=== PATIENT | male | born 1950 | race Caucasian/White ===

== ENCOUNTER 2017-04-28 11:02 | Day surgery (SDC) | payer OTHER ==
[2017-04-28] MEDS ORDERED: fentaNYL 100 MCG/2 ML INJ IVP ONE (11:08)
[2017-04-28] MEDS ORDERED: NS 500 ML IV ONE (11:08)
[2017-04-28] MEDS ORDERED: ATROPINE SULFATE 1 MG/10 ML SYR IVP ONE (11:08)
[2017-04-28] MEDS ORDERED: MIDAZOLAM 2 MG/2 ML VIAL IVP ONE (11:08)
--- NOTE | 2017-04-28 11:22 | CPEKG ---
Heart Rate: 63 RR Interval: 952 QRSD Interval: 100 QT Interval: 416 QTC Interval: 426 QRS [place]: -69 T Wave [place]: 5 EKG Severity - ABNORMAL ECG - EKG Impression: ATRIAL FIBRILLATION, V-RATE 43-80 EKG Impression: PROBABLE INFERIOR INFARCT, AGE INDETERMINATE EKG Impression: Right ventricular conduction defect Electronically Signed By: Js Mabry 28-Apr-2017 12:36:40
[2017-04-28 11:49] LABS: INR 1.25 (0.83-1.16); PROTIME(PATIENT) 15.7 SEC (12.0-15.0)
[2017-04-28 11:50] LABS: APTT 34.1 SEC (23.0-38.0)
[2017-04-28 12:07] LABS: ANION GAP 12 mEq/L (8-16); CALCIUM 9.1 mg/dL (8.5-10.4); CARBON DIOXIDE 24 mEq/l (22-31); CHLORIDE 105 mEq/L (97-110); CREATININE 0.9 mg/dL (0.7-1.3); GLOMERULAR FILTRATION RATE > 60; GLUCOSE 92 mg/dL (70-100); MAGNESIUM 1.9 mg/dL (1.6-2.3); POTASSIUM 4.1 mEq/L (3.5-5.2); SODIUM 141 mEq/L (134-144)
--- NOTE | 2017-04-28 13:15 | PDANEPAE ---
ANE History of Present Illness 67 year old male w/ history of HTN (on HCTZ) and atrial fibrillation (on eloquis ) presents for cardioversion. ANE Past Medical History - Cardiovascular History Hx Hypertension: Yes Hx Arrhythmias: Yes Hx Chest Pain: No Hx Coronary Artery / Peripheral Vascular Disease: No Hx CHF / Valvular Disease: No Hx Palpitations: Yes - Pulmonary History Hx COPD: No Hx Asthma/Reactive Airway Disease: No Hx Recent Upper Respiratory Infection: No Hx Oxygen in Use at Home: No Hx Sleep Apnea: No - Neurologic History Hx Cerebrovascular Accident: No Hx Seizures: No Hx Dementia: No - Endocrine History Hx Diabetes: No Hypothyroid: No Hyperthyroid: No Obesity: no - Renal History Hx Renal Disorders: No Renal History Comment: Does take medicaiton for BPH - Liver History Hx Hepatic Disorders: No - Neurological & Psychiatric Hx Hx Neurological and Psychiatric Disorders: No - Cancer History Hx Cancer: No - Congenital Disorder History Hx Congenital Disorders: No - GI History GERD: no Hx Gastrointestinal Disorders: No - Chronic Pain History Chronic Pain: No ANE Review of Systems Review of systems is: negative Review of Systems: - Exercise capacity Exercise capacity: >=4 METS ANE Patient History - Allergies Allergies/Adverse Reactions: No Known Allergies Allergy (Unverified 04/22/17 09:58) - Home Medications Home medications: home medication list seen and reviewed Home Medications: Apixaban [Eliquis] 5 mg PO DAILY 04/28/17 [Last Taken 04/28/17 07:00] CALCIUM 1,250 mg PO DAILY 04/28/17 [Last Taken Unknown] Coq10 100 mg PO DAILY 04/28/17 [Last Taken Unknown] Dhea 50 mg Tablet 50 mg PO DAILY 04/28/17 [Last Taken Unknown] Enzyme Digest PO 04/28/17 [Last Taken Unknown] HCTZ (*) 12.5 mg PO DAILY 04/28/17 [Last Taken Unknown] Tamsulosin HCl 0.4 mg PO DAILY 04/28/17 [Last Taken Unknown] - NPO status NPO Status: no food or drink >8 hours - Anes Hx Anes Hx: no prior problems - Smoking Hx Smoking Status: Former smoker Marijuana use: No - Alcohol Use Alcohol Use: None - Family Anes Hx Family Anes Hx: neg - N/A ANE Labs/Vital Signs - Labs Result Diagrams: 04/28/17 11:30 - Vital Signs Vital Signs: reviewed preoperatively; see RN documention for details Height: 176.5 cm Weight: 80.8 kg ANE Physical Exam - Airway Neck exam: FROM Mallampati Score: Class 2 Mouth exam: poor dentition - Pulmonary Pulmonary: no respiratory distress - Cardiovascular Cardiovascular: irregularly irregular - ASA Status ASA Status: II ANE Anesthesia Plan Anesthesia Plan: GA with mask Total IV Anesthesia: Yes
[2017-04-28] MEDS ORDERED: PROPOFOL 200 MG/20 ML VIAL ONE (14:02)
[2017-04-28] MEDS ORDERED: LIDOCAINE 1% 5 ML SDV ONE (14:02)
--- NOTE | 2017-04-28 14:06 | PDGENHP ---
History & Physical Chief Complaint: AF History of Present Illness: AF which appears to be symptomatic Pertinent Past, Social, Family History: None to the current condition Relevant Physical Exam: Normal Cardiorespiratory Assessment: Chest CTA no rales or rhonchii. S1s2 irregular
--- NOTE | 2017-04-28 14:19 | POSTANESTH ---
Post Anesthetic Evaluation Cardiovascular Status: Normal, Stable Respiratory Status: Normal, Stable Level of Consciousness/Mental Status: Can Participate in Eval Pain Control: Adequate, Prn Tx Ordered Nausea/Vomiting Control: Adequate, Prn Tx Ordered Complications Possibly Related to Anesthesia: None Noted
--- NOTE | 2017-04-28 14:19 | CPEKG ---
Heart Rate: 59 RR Interval: 1017 P-R Interval: 228 QRSD Interval: 98 QT Interval: 444 QTC Interval: 440 P [place]: 0 QRS [place]: -58 T Wave [place]: 5 EKG Severity - ABNORMAL ECG - EKG Impression: SINUS RHYTHM EKG Impression: FIRST DEGREE AV BLOCK EKG Impression: LEFT ANTERIOR FASCICULAR BLOCK EKG Impression: LOW VOLTAGE IN FRONTAL LEADS EKG Impression: Resolution of atrial fibrillation since April 28, 2017, 11:20 EKG Impression: Right ventricular conduction defect Electronically Signed By: Js Mabry 28-Apr-2017 16:30:31
--- NOTE | 2017-04-28 15:06 | EPPROC ---
Electrophysiology Procedure Note: Procedure: DCCV Indication: AF Procedure: Patient sedated by anesthesia staff. Once sedated, pt underwent synchronized DCCV. Pt converted to SR Conclusion: Successful DCCV
== END 2017-04-28 15:52 | disposition home or self-care (01) ==
LOC: FCATH 11:02
PROVIDERS: ATTEND Internal Medicine Cardiovascular Disease
PROC: 5A2204Z Restoration of Cardiac Rhythm, Single (ICD-10-PCS; principal; 2017-04-28)
DX: I48.91 Unspecified atrial fibrillation (principal); I10 Essential (primary) hypertension; Z79.01 Long term (current) use of anticoagulants
CPT/HCPCS: J2704